=== PATIENT | male | born 1990 | race Two or more races ===

== ENCOUNTER 2024-12-05 13:11 | Emergency (ER) | payer MEDICAID, SELFPAY ==
[2024-12-05 13:16] VITALS: BP 130/81
--- NOTE | 2024-12-05 13:54 | ED.GENMED ---
History of Present Illness
General
Chief Complaint: Musculo-Skeletal Complaint
Source: patient and order entry specialist
Exam Limitations: none
Time Seen by Provider: 12/05/24 13:32
History of Present Illness
History of Present Illness:
Patient caught his hand with a drill 5 days ago. Went to a hospital in [place]. Told his hand was fractured. Splint was placed. Orthopedic follow-up. He took the splint off because of tingling of his fingertips.
Review of Systems
Review of Systems
All Other Systems: Not applicable
Phy Exam
Physical Exam
Physical Exam:
General: Nontoxic appearing in no distress
Skin: Warm and dry, no rash
Neuro: Alert, nontoxic, grossly nonfocal
Psychiatric: Good eye contact and appropriate
Musculoskeletal: Tenderness swelling fourth mid metacarpal. No open wound. No obvious deformity or rotation of the fingers. Subjective tingling to the tip of the fourth finger and tip of the thumb. All other digits and hand unremarkable. Wrist
unremarkable.
Course
Orders/Labs/Results
Orders:
Orders
12/05/24 13:27
Hand, Right 3 View [CR Hand - Right Min 3 Views] Urgent
Comment:
Reason For Exam: pain, trauma
12/05/24 13:51
Ulnar Gutter Right-Treatment ONCE
Vital Signs
Initial and Last Documented VS:
Initial Vital Signs
Pulse Resp BP Pulse Ox
83 18 130/81 99
12/05/24 13:16 12/05/24 13:16 12/05/24 13:16 12/05/24 13:16
Last Documented Vital Signs
Temp Pulse Resp BP Pulse Ox
98.2 F 83 18 130/81 99
12/05/24 13:17 12/05/24 13:16 12/05/24 13:16 12/05/24 13:16 12/05/24 13:16
MDM/Problems Addressed
Differential Diagnosis Includes:
Ulnar gutter splint and orthopedic follow-up
*Radiology
Radiology exam reviewed: preliminary read by ED provider (Spiral fracture right mid fourth metacarpal)
*Pulse Oximetry
Patient hypoxic: no
*Critical Care Note
Total Time (30-74mins, 75-104mins- exclusive of procedures): Not Applicable
ED Attending Note
-
Portions of this chart may have been created with voice recognition software.� Occasional wrong word or��sound alike� substitutions may have occurred due to the inherent limitations of voice recognition software.
Discharge Plan
Departure
Patient Disposition: Home (Routine Discharge)
Date of Disposition: 12/05/24
Time of Disposition: 13:56
Patient with high blood pressure during this ER visit?: Yes
Discharge Problem:
Right fourth metacarpal fracture
Instructions: Hand Fracture ED, BLOOD PRESSURE
Referrals:
Nawaf Boogie MD [Active] - Follow up in 2-3 days
Activity Restrictions/Additional Instructions:
Call the orthopedist first thing Saturday morning. This does need close follow-up.... As we discussed
Discharge Date and Time
Print Language: POLISH
== END 2024-12-05 15:11 | disposition home or self-care (01) ==
LOC: EMR 13:11
PROVIDERS: EMERGENCY PHYSICIAN Emergency Medicine
DX: S62.394A Other fracture of fourth metacarpal bone, right hand, initial encounter for closed fracture (principal); W29.8XXA Contact with other powered hand tools and household machinery, initial encounter; R20.2 Paresthesia of skin
CPT/HCPCS: 29125; 99283; 73130

== ENCOUNTER 2025-01-14 16:07 | Outpatient (RCR) | payer MEDICAID, SELFPAY | END 2025-01-14 23:59 | disposition home or self-care (01) | LOC: ROT 16:07 | PROVIDERS: ATTENDING PHYSICIAN Physician Assistant Surgical | DX: S62.324D Displaced fracture of shaft of fourth metacarpal bone, right hand, subsequent encounter for fracture with routine healing (principal); Z73.6 Limitation of activities due to disability | CPT/HCPCS: 97018; 97110; 97140; 97166; 97535 ==